=== PATIENT | male | born 1980 | race Caucasian/White ===

== ENCOUNTER 2025-02-04 12:55 | Emergency (ER) | payer OTHER ==
[~2025-02-04] VITALS: Ht 175.2 cm; Wt 93.0 kg
[2025-02-04] MEDS ORDERED: MORPHINE Sulfate 2 MG/ML SYR IV ONE ×2 (13:10→13:45)
[2025-02-04] MEDS ORDERED: Ondansetron Hydrochloride 4 MG/2 ML VIAL IV ONE (13:10)
[2025-02-04] MEDS ORDERED: SODIUM CHLORIDE 0.9% 1,000 ML IV ONE (13:10)
[2025-02-04 13:20] LABS: BASO # 0.1 10*3/uL (0.0-0.1); BASO % 0.7 % (0.0-1.0); EOS # 0.3 10*3/uL (0.0-0.4); HEMATOCRIT 45.3 % (42.0-52.0); MEAN CELL VOLUME 91.1 fl (80.0-94.0); MEAN CORPUSCULAR HGB 31.8 pg (27.0-31.0); MEAN CORPUSCULAR HGB CONC 34.9 g/dl (33.0-37.0); MEAN PLATELET VOLUME 9.6 fl (9.6-12.3); MONO # 0.8 10*3/uL (0.1-1.0); MONO % 8.1 % (3.0-9.0); NEUT # 6.5 10*3/uL (2.3-7.9); NEUT % 66.7 % (47.0-73.0); PLATELET COUNT AUTOMATED 256 10*3/uL (130-400); RED BLOOD COUNT 4.97 10*6/uL (4.50-5.90); RED CELL DISTRI WIDTH 12.3 % (0-14.5); WHITE BLOOD COUNT 9.8 10*3/uL (4.8-10.8)
[2025-02-04 13:42] LABS: BUN 10 mg/dl (9-23); CHLORIDE 104 mmol/L (98-107); POTASSIUM 4.4 mmol/L (3.4-5.1)
[2025-02-04] MEDS ORDERED: PERCOCET 5-3251 EACH PO (14:02)
[2025-02-04] MEDS ORDERED: CIPRO500 MG PO (14:02)
[2025-02-04 14:11] LABS: BILIRUBIN Negative (Negative); BLOOD 3+ (Negative); CLARITY Turbid (Clear); COLOR Red (Yellow); GLUCOSE Negative (Negative); KETONE Negative (Negative); LEUKO ESTERASE 2+ (Negative); NITRITE Positive (Negative); PH 7.5 (4.5-8.0); UROBILINOGEN 0.2 E.U./dl (0.0-1.0)
[2025-02-04 14:21] LABS: BACTERIA 2+; EPITHELIAL CELLS TNTC; RBC TNTC rbc/hpf (0-2)
[2025-02-04 14:22] LABS: WBC 31-40 wbc/hpf (0-5)
== END 2025-02-04 14:22 | disposition home or self-care (01) ==
LOC: ED 12:55
PROVIDERS: Emergency Medicine
DX: K63.89 Other specified diseases of intestine (principal); N39.0 Urinary tract infection, site not specified; R11.2 Nausea with vomiting, unspecified; Z87.442 Personal history of urinary calculi; Z88.1 Allergy status to other antibiotic agents; Z88.5 Allergy status to narcotic agent; Z88.6 Allergy status to analgesic agent; Z88.8 Allergy status to other drugs, medicaments and biological substances

== ENCOUNTER 2025-02-07 13:58 | Emergency (ER) | payer OTHER ==
[~2025-02-07] VITALS: Ht 175.2 cm; Wt 96.2 kg
[~2025-02-07 13:58] MED LIST: CIPRO500 MG PO; PERCOCET 5-3251 EACH PO
[2025-02-07] MEDS ORDERED: DICYCLOMINE HYD20 MG PO (14:38)
[2025-02-07] MEDS ORDERED: BUSPIRONE HCL10 MG PO (14:39)
[2025-02-07] MEDS ORDERED: TRAZODONE100 MG PO (14:40)
[2025-02-07] MEDS ORDERED: SODIUM CHLORIDE 0.9% 1,000 ML IV ONE (15:05)
[2025-02-07] MEDS ORDERED: Ondansetron Hydrochloride 4 MG/2 ML VIAL IV ONE (15:05)
[2025-02-07] MEDS ORDERED: MORPHINE Sulfate 2 MG/ML SYR IV ONE (15:05)
== END 2025-02-07 16:03 | disposition left against medical advice (07) ==
LOC: ED 13:58
DX: R10.12 Left upper quadrant pain (principal); R11.2 Nausea with vomiting, unspecified; Z88.1 Allergy status to other antibiotic agents; Z88.5 Allergy status to narcotic agent; Z88.6 Allergy status to analgesic agent; Z79.899 Other long term (current) drug therapy; Z53.29 Procedure and treatment not carried out because of patient's decision for other reasons